=== PATIENT | female | born 1955 | race Asian ===

== ENCOUNTER 2017-11-07 05:44 | Emergency (ER) | payer OTHER ==
[~2017-11-07] VITALS: Ht 172.7 cm; Wt 99.8 kg
[2017-11-07 05:54] VITALS: TEMP 98.3
[2017-11-07 06:52] LABS: PLATELET COUNT 299 K/uL (152-353)
[2017-11-07 07:09] LABS: PARTIAL THROMBOPLASTIN TIME 25.8 SECONDS (24.5-33.6)
[2017-11-07 07:11] LABS: POTASSIUM 2.4 mmol/L (3.6-5.2)
[2017-11-07 10:45] VITALS: BP 122/55
== END 2017-11-07 11:11 | disposition home or self-care (01) ==
LOC: ED 05:44
DX: R07.89 Other chest pain (principal); N19 Unspecified kidney failure; R06.02 Shortness of breath; I48.91 Unspecified atrial fibrillation
CPT/HCPCS: 36415; 80053; 82550; 83880; 84484; 85027; 85379; 85610; 85730; 93005; 96360; 96374; 99284; J2060; Q9963

== ENCOUNTER 2017-12-09 07:21 | Outpatient (CLI) | payer OTHER ==
[2017-12-09 07:54] LABS: PLATELET COUNT 289 K/uL (152-353)
[2017-12-09 07:59] LABS: POTASSIUM 4.7 mmol/L (3.6-5.2)
== END 2017-12-09 21:01 | disposition home or self-care (01) ==
LOC: LABW 07:21
PROVIDERS: Internal Medicine Nephrology
DX: N28.9 Disorder of kidney and ureter, unspecified (principal)
CPT/HCPCS: 36415; 80053; 84100; 85027

== ENCOUNTER 2017-12-17 10:12 | Outpatient (CLI) | payer OTHER ==
[2017-12-17 10:44] LABS: PLATELET COUNT 230 K/uL (152-353)
[2017-12-17 11:24] LABS: POTASSIUM 4.6 mmol/L (3.6-5.2)
== END 2017-12-17 16:00 | disposition home or self-care (01) ==
LOC: LABW 10:12
PROVIDERS: Internal Medicine Nephrology
DX: N18.5 Chronic kidney disease, stage 5 (principal); I10 Essential (primary) hypertension; I25.10 Atherosclerotic heart disease of native coronary artery without angina pectoris
CPT/HCPCS: 36415; 80053; 84100; 85027

== ENCOUNTER 2018-01-27 09:24 | Outpatient (CLI) | payer OTHER ==
[2018-01-27 09:54] LABS: PLATELET COUNT 266 K/uL (152-353)
== END 2018-01-27 19:53 | disposition home or self-care (01) ==
LOC: LABW 09:24
PROVIDERS: Internal Medicine Nephrology
DX: N18.5 Chronic kidney disease, stage 5 (principal); I10 Essential (primary) hypertension; I25.10 Atherosclerotic heart disease of native coronary artery without angina pectoris
CPT/HCPCS: 36415; 80053; 84100; 85027

== ENCOUNTER 2018-04-01 08:30 | Outpatient (CLI) | payer OTHER ==
[2018-04-01 09:10] LABS: PLATELET COUNT 356 K/uL (152-353)
[2018-04-01 09:35] LABS: POTASSIUM 3.6 mmol/L (3.6-5.2)
== END 2018-04-01 21:21 | disposition home or self-care (01) ==
LOC: LABW 08:30
PROVIDERS: Internal Medicine Nephrology
DX: I10 Essential (primary) hypertension (principal); I25.10 Atherosclerotic heart disease of native coronary artery without angina pectoris; N18.4 Chronic kidney disease, stage 4 (severe); R82.998 Other abnormal findings in urine
CPT/HCPCS: 36415; 80053; 81000; 82570; 82607; 82652; 82728; 82747; 83540; 83550; 83970; 84100; 84155; 85027; 87077; 87086; 87088; 87186

== ENCOUNTER 2018-11-18 08:43 | Outpatient (CLI) | payer OTHER ==
[2018-11-18 09:11] LABS: PLATELET COUNT 218 K/uL (152-353)
[2018-11-18 10:11] LABS: POTASSIUM 4.3 mmol/L (3.6-5.2)
== END 2018-11-18 22:25 | disposition home or self-care (01) ==
LOC: LABW 08:43
PROVIDERS: Internal Medicine Nephrology
DX: I12.9 Hypertensive chronic kidney disease with stage 1 through stage 4 chronic kidney disease, or unspecified chronic kidney disease (principal); N18.3 Chronic kidney disease, stage 3 (moderate); E11.9 Type 2 diabetes mellitus without complications; M10.9 Gout, unspecified; K21.9 Gastro-esophageal reflux disease without esophagitis; D64.89 Other specified anemias; R82.998 Other abnormal findings in urine
CPT/HCPCS: 36415; 80053; 81000; 82306; 82570; 82607; 82728; 82746; 83540; 83550; 83970; 84100; 84155; 85027; 87077; 87086; 87088; 87186

== ENCOUNTER 2019-03-02 09:44 | Outpatient (CLI) | payer OTHER ==
[2019-03-02 10:08] LABS: PLATELET COUNT 276 K/uL (152-353)
[2019-03-02 11:28] LABS: POTASSIUM 4.9 mmol/L (3.6-5.2)
== END 2019-03-02 19:13 | disposition home or self-care (01) ==
LOC: LABW 09:44
PROVIDERS: Internal Medicine Nephrology
DX: I12.9 Hypertensive chronic kidney disease with stage 1 through stage 4 chronic kidney disease, or unspecified chronic kidney disease (principal); N18.3 Chronic kidney disease, stage 3 (moderate); E11.9 Type 2 diabetes mellitus without complications; M10.9 Gout, unspecified; K21.9 Gastro-esophageal reflux disease without esophagitis; D64.89 Other specified anemias; E53.8 Deficiency of other specified B group vitamins; R82.998 Other abnormal findings in urine
CPT/HCPCS: 36415; 80053; 81000; 82306; 82570; 82607; 82728; 82746; 83540; 83550; 83970; 84100; 84155; 85027; 87077; 87086; 87088; 87186

== ENCOUNTER 2019-06-29 07:30 | Outpatient (CLI) | payer OTHER ==
[2019-06-29 08:15] LABS: PLATELET COUNT 202 K/uL (152-353)
[2019-06-29 08:46] LABS: POTASSIUM 5.1 mmol/L (3.6-5.2)
== END 2019-06-29 19:08 | disposition home or self-care (01) ==
LOC: LABW 07:30
PROVIDERS: Internal Medicine Nephrology
DX: E11.9 Type 2 diabetes mellitus without complications (principal); I10 Essential (primary) hypertension; M10.9 Gout, unspecified; K21.9 Gastro-esophageal reflux disease without esophagitis; E53.8 Deficiency of other specified B group vitamins; N18.9 Chronic kidney disease, unspecified
CPT/HCPCS: 36415; 80053; 80061; 81000; 82306; 82570; 82607; 82746; 83036; 83970; 84100; 84155; 85027

== ENCOUNTER 2019-10-26 09:50 | Outpatient (CLI) | payer OTHER ==
[2019-10-26 10:07] LABS: POTASSIUM 4.6 mmol/L (3.6-5.2)
== END 2019-10-26 21:07 | disposition home or self-care (01) ==
LOC: LABW 09:50
PROVIDERS: Physician Assistant Medical
DX: I25.119 Atherosclerotic heart disease of native coronary artery with unspecified angina pectoris (principal); Z09 Encounter for follow-up examination after completed treatment for conditions other than malignant neoplasm
CPT/HCPCS: 36415; 80048

== ENCOUNTER 2019-11-16 10:40 | Outpatient (CLI) | payer OTHER ==
[2019-11-16 11:02] LABS: PLATELET COUNT 242 K/uL (152-353)
[2019-11-16 11:36] LABS: POTASSIUM 5.3 mmol/L (3.6-5.2)
== END 2019-11-16 20:02 | disposition home or self-care (01) ==
LOC: LABW 10:40
PROVIDERS: Internal Medicine Nephrology
DX: E11.9 Type 2 diabetes mellitus without complications (principal); I10 Essential (primary) hypertension; M10.9 Gout, unspecified; K21.9 Gastro-esophageal reflux disease without esophagitis
CPT/HCPCS: 36415; 80053; 80061; 81000; 82306; 82570; 82607; 82746; 83036; 83970; 84100; 84155; 85027

== ENCOUNTER 2020-04-04 08:16 | Outpatient (CLI) | payer OTHER ==
[2020-04-04 10:29] LABS: PLATELET COUNT 230 K/uL (152-353)
[2020-04-04 10:40] LABS: POTASSIUM 4.3 mmol/L (3.6-5.2)
== END 2020-04-04 19:12 | disposition home or self-care (01) ==
LOC: LABW 08:16
PROVIDERS: ATTEND Internal Medicine Interventional Cardiology
DX: E78.49 Other hyperlipidemia (principal); Z09 Encounter for follow-up examination after completed treatment for conditions other than malignant neoplasm; M10.9 Gout, unspecified; K21.9 Gastro-esophageal reflux disease without esophagitis; N18.30 Chronic kidney disease, stage 3 unspecified; D63.1 Anemia in chronic kidney disease; E53.8 Deficiency of other specified B group vitamins; E11.22 Type 2 diabetes mellitus with diabetic chronic kidney disease; I12.9 Hypertensive chronic kidney disease with stage 1 through stage 4 chronic kidney disease, or unspecified chronic kidney disease
CPT/HCPCS: 36415; 80053; 80061; 81000; 82248; 82306; 82570; 82607; 82728; 82746; 83036; 83540; 83550; 83970; 84100; 84155; 84439; 84443; 85027

== ENCOUNTER 2020-08-01 08:59 | Outpatient (CLI) | payer OTHER ==
[2020-08-01 09:42] LABS: PLATELET COUNT 196 K/uL (152-353)
[2020-08-01 09:49] LABS: POTASSIUM 4.1 mmol/L (3.6-5.2)
== END 2020-08-01 19:18 | disposition home or self-care (01) ==
LOC: LABW 08:59
PROVIDERS: ATTEND Internal Medicine Nephrology
DX: E11.9 Type 2 diabetes mellitus without complications (principal); M10.9 Gout, unspecified; K21.9 Gastro-esophageal reflux disease without esophagitis; N18.30 Chronic kidney disease, stage 3 unspecified; D63.1 Anemia in chronic kidney disease; D64.89 Other specified anemias; E53.8 Deficiency of other specified B group vitamins; I12.9 Hypertensive chronic kidney disease with stage 1 through stage 4 chronic kidney disease, or unspecified chronic kidney disease
CPT/HCPCS: 36415; 80053; 80061; 81000; 82306; 82570; 83036; 83970; 84100; 84155; 85027

== ENCOUNTER 2020-10-10 09:05 | Outpatient (CLI) | payer OTHER | END 2020-10-10 19:55 | disposition home or self-care (01) | LOC: LABW 09:05 | PROVIDERS: ATTEND Internal Medicine Interventional Cardiology | DX: E78.49 Other hyperlipidemia (principal) | CPT/HCPCS: 36415; 80061; 80076 ==

== ENCOUNTER 2021-01-31 08:50 | Outpatient (CLI) | payer OTHER ==
[2021-01-31 09:31] LABS: PLATELET COUNT 221 K/uL (152-353)
== END 2021-01-31 19:25 | disposition home or self-care (01) ==
LOC: LABW 08:50
PROVIDERS: ATTEND Internal Medicine Nephrology
DX: D63.1 Anemia in chronic kidney disease (principal); M10.9 Gout, unspecified; K21.9 Gastro-esophageal reflux disease without esophagitis; E11.9 Type 2 diabetes mellitus without complications; N18.31 Chronic kidney disease, stage 3a; E61.1 Iron deficiency; E78.49 Other hyperlipidemia; D51.9 Vitamin B12 deficiency anemia, unspecified; E55.9 Vitamin D deficiency, unspecified; I12.9 Hypertensive chronic kidney disease with stage 1 through stage 4 chronic kidney disease, or unspecified chronic kidney disease
CPT/HCPCS: 36415; 80061; 81000; 82306; 82570; 82607; 82728; 82746; 83540; 83550; 83970; 84100; 84155; 85027

== ENCOUNTER 2021-02-07 08:48 | Outpatient (CLI) | payer OTHER | END 2021-02-07 19:34 | disposition home or self-care (01) | LOC: LABW 08:48 | PROVIDERS: ATTEND Internal Medicine Nephrology | DX: N18.31 Chronic kidney disease, stage 3a (principal); N25.81 Secondary hyperparathyroidism of renal origin | CPT/HCPCS: 36415; 80053; 84100 ==

== ENCOUNTER 2021-02-28 09:05 | Outpatient (CLI) | payer OTHER ==
[2021-02-28 09:27] LABS: PLATELET COUNT 214 K/uL (152-353)
[2021-02-28 10:24] LABS: POTASSIUM 4.4 mmol/L (3.6-5.2)
== END 2021-02-28 21:18 | disposition home or self-care (01) ==
LOC: LABW 09:05
PROVIDERS: ATTEND Internal Medicine Endocrinology, Diabetes & Metabolism
DX: E11.22 Type 2 diabetes mellitus with diabetic chronic kidney disease (principal); E78.2 Mixed hyperlipidemia; N18.31 Chronic kidney disease, stage 3a
CPT/HCPCS: 36415; 80053; 80061; 82043; 82570; 84439; 84443; 85027

== ENCOUNTER 2021-06-05 12:09 | Outpatient (CLI) | payer OTHER ==
[2021-06-05 12:42] LABS: PLATELET COUNT 251 K/uL (152-353)
[2021-06-05 13:03] LABS: POTASSIUM 5.2 mmol/L (3.6-5.2)
== END 2021-06-05 19:01 | disposition home or self-care (01) ==
LOC: LABW 12:09
PROVIDERS: ATTEND Internal Medicine Nephrology
DX: N18.31 Chronic kidney disease, stage 3a (principal); R79.89 Other specified abnormal findings of blood chemistry
CPT/HCPCS: 36415; 80053; 81000; 82306; 82570; 82607; 82728; 82746; 83036; 83540; 83550; 83970; 84100; 84155; 84550; 85027

== ENCOUNTER 2021-09-01 09:28 | Outpatient (CLI) | payer OTHER ==
[2021-09-01 10:00] LABS: PLATELET COUNT 239 K/uL (152-353)
[2021-09-01 10:23] LABS: POTASSIUM 4.2 mmol/L (3.6-5.2)
== END 2021-09-01 19:57 | disposition home or self-care (01) ==
LOC: LABW 09:28
PROVIDERS: ATTEND Internal Medicine Nephrology
DX: N18.31 Chronic kidney disease, stage 3a (principal); D64.89 Other specified anemias; E11.9 Type 2 diabetes mellitus without complications
CPT/HCPCS: 36415; 80053; 82306; 82607; 82728; 82746; 83036; 83540; 83550; 83970; 84100; 84550; 85027

== ENCOUNTER 2022-01-02 07:34 | Outpatient (CLI) | payer OTHER ==
[2022-01-02 08:22] LABS: PLATELET COUNT 252 K/uL (152-353)
[2022-01-02 08:40] LABS: POTASSIUM 4.5 mmol/L (3.6-5.2)
== END 2022-01-02 18:45 | disposition home or self-care (01) ==
LOC: LABW 07:34
PROVIDERS: ATTEND Internal Medicine Nephrology
DX: I12.9 Hypertensive chronic kidney disease with stage 1 through stage 4 chronic kidney disease, or unspecified chronic kidney disease (principal); N18.31 Chronic kidney disease, stage 3a; D63.1 Anemia in chronic kidney disease; E55.9 Vitamin D deficiency, unspecified; D51.8 Other vitamin B12 deficiency anemias; D64.89 Other specified anemias; R94.6 Abnormal results of thyroid function studies; E78.49 Other hyperlipidemia; E11.9 Type 2 diabetes mellitus without complications
CPT/HCPCS: 36415; 80053; 80061; 82306; 82607; 82728; 82746; 83036; 83540; 83550; 83970; 84100; 84439; 84443; 85027